=== PATIENT | female | born 1995 | race Caucasian/White ===

== ENCOUNTER 2025-04-15 08:06 | Day surgery (SDC) | payer OTHER ==
[2025-04-13 14:07] VITALS: BMI 14.0
[2025-04-15] MEDS ORDERED: ACETAMINOPHEN INJECTION 100 ML ONE (09:30)
[2025-04-15 10:39] VITALS: PULSE 78; RESP 16; TEMP 98
[2025-04-15 11:03] VITALS: BP 121/78
== END 2025-04-15 11:03 | disposition home or self-care (01) ==
LOC: FECT 08:06
PROVIDERS: ATTEND Psychiatry & Neurology Psychiatry
PROC: GZB4ZZZ Other Electroconvulsive Therapy (ICD-10-PCS; principal; 2025-04-15 09:48)
DX: F33.2 Major depressive disorder, recurrent severe without psychotic features (principal)
CPT/HCPCS: 90870; 94760